=== PATIENT | female | born 1935 | race Two or more races ===

== ENCOUNTER 2019-01-12 16:32 | Emergency (ER) | payer MEDICARE, MEDICAID ==
[2019-01-12 17:33] LABS: URINE SOURCE CLEAN C
[2019-01-12 17:35] LABS: URINE BILIRUBIN NEGATIVE (NEGATIVE); URINE BLOOD NEGATIVE (NEGATIVE); URINE CLARITY CLEAR (CLEAR); URINE COLOR YELLOW; URINE GLUCOSE (UA) NEGATIVE (NEGATIVE); URINE KETONE NEGATIVE (NEGATIVE); URINE LEUKOCYTE ESTERASE NEGATIVE (NEGATIVE); URINE MICROSCOPIC INDICATED? YES; URINE NITRATE NEGATIVE (NEGATIVE); URINE PH 5.5 (4.6 - 8.0); URINE PROTEIN NEGATIVE (NEGATIVE); URINE UROBILINOGEN 0.2 E.U./dL (0.2 - 1.0)
[2019-01-12 17:40] LABS: URINE BACTERIA NONE SEEN /hpf (NONE SEEN); URINE EPITHELIAL CELLS RARE /lpf (FEW); URINE RBC NONE SEEN /hpf (0-5); URINE WBC NONE SEEN /hpf (0-5)
--- NOTE | 2019-01-12 18:23 | ED Physician Chart ---
ED Chief Complaint/HPI - Patient Information Date Seen:: 01/12/19 Time Seen:: 16:35 Chief Complaint:: Back Pain History of Present Illness:: onset x 10 days of back pain, flank pain, weakness, and dizziness; pt recently Dx with UTI; Rx with Bactrim with resolution of UTI but above s/s persist; pt denies trauma, H/As, S/T, neck pain, cough, C/P, SOB, Abd. Pain, A/N/V/D/C, fever, or chills Allergies:: Allergies Allergy/AdvReac Type Severity Reaction Status Date / Time No Known Allergies Allergy Verified 01/12/19 16:53 Vitals:: Vital Signs - 8 hr 01/12/19 16:35 HR 65 RR 18 BP 164/93 O2 Sat % 98 Historian:: Patient, Family Member Review:: Nurse's Note Reviewed, Old Chart Reviewed <Roman Corcoran - Last Filed: 01/12/19 18:27> - Patient Information Allergies:: Allergies Allergy/AdvReac Type Severity Reaction Status Date / Time No Known Allergies Allergy Verified 01/12/19 16:53 Vitals:: Vital Signs - 8 hr 01/12/19 01/12/19 01/12/19 16:35 19:20 20:05 Temp 98.0 F HR 65 60 60 RR 18 16 18 BP 164/93 137/66 136/68 O2 Sat % 98 01/12/19 21:12 Temp HR 77 RR 16 BP 136/60 O2 Sat % 98 <Esdras Vang - Last Filed: 01/13/19 10:25> ED Review of Systems - Review of Systems General/Constitutional: No fever, No chills, No weight loss, No weakness, No diaphoresis, No edema, No loss of appetite Skin: No skin lesions, No rash, No bruising Head: No headache, No light-headedness Eyes: No loss of vision, No pain, No diplopia ENT: No earache, No nasal drainage, No sore throat, No tinnitus Neck: No neck pain, No swelling, No thyromegaly, No stiffness, No mass noted Cardio Vascular: No chest pain, No palpitations, No PND, No orthopnea, No edema Pulmonary: No SOB, No cough, No sputum, No wheezing GI: No nausea, No vomiting, No diarrhea, No pain, No melena, No hematochezia, No constipation, No hematemesis G/U: Dysuria, Frequency, No hematuria, No nacturia 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: No vaginal discharge, No abnormal vaginal bleed, No contraction Musculoskeletal: No bone or joint pain, Back pain, No muscle pain Endocrine: No polyuria, No polydipsia Psychiatric: No prior psych history, No depression, No anxiety, No suicidal ideation, No homicidal ideation, No auditory hallucination, No visual hallucination Hematopoietic: No bruising, No lymphadenopathy Allergic/Immuno: No urticaria, No angioedema Neurological: No syncope, No focal symptoms, Weakness, No paresthesia, No headache, No seizure, Dizziness, No confusion, No vertigo <VirgieRoman wallis - Last Filed: 01/12/19 18:27> ED Past Medical History - Past Medical History Obtainable: Yes Past Medical History: HTN, Other (Parkinson's Disease) Family History: HTN Social History: Non Smoker, No Alcohol, No Drug Use, Surgical History: Appendectomy, Hysterectomy, Pacemaker Psychiatricy History: Schizophrenia Medication: Reviewed <Roman Corcoran - Last Filed: 01/12/19 18:27> Family Medical History - Family Member Mother History Unknown: Yes <VirgieRoman wallis - Last Filed: 01/12/19 18:27> ED Physical Exam - Physical Examination General/Constitutional: Awake, Well-developed, well-nourished, Alert, No distress, GCS 15, Non-toxic appearing, Ambulatory Head: Atraumatic Eyes: Lids, conjuctiva normal, PERRL, EOMI Skin: Nl inspection, No rash, No skin lesions, No ecchymosis, Well hydrated, No lymphadenopathy ENMT: External ears, nose nl, TM canals nl, Nasal exam nl, Lips, teeth, gums nl , Oropharynx nl, Tonsils nl Neck: Nontender, Full ROM w/o pain, No JVD, No nuchal rigidity, No bruit, No mass, No stridor Respiratory: Nl effort/Exclusion, Clear to Auscultation, No Wheeze/Rhonchi/Rales Cardio Vascular: RRR, No murmur, gallop, rubs, NL S1 S2, Carotid/Femoral/Distal pulses equal bilaterally GI: No tenderness/rebounding/guarding, No organomegaly, No hernia, Normal BS's, Nondistended, No mass/bruits, No McBurney tenderness : No CVA tenderness Extremities: No tenderness or effusion, Full ROM, normal strength in all extremities, No edema, Normal digits & nails Neuro/Psych: Alert/oriented, DTR's symmetric, Normal sensory exam, Normal motor strength, Judgement/insight normal, Mood normal, Normal gait, No focal deficits Misc: Normal back, No paraspinal tenderness <Roman Corcoran - Last Filed: 01/12/19 18:27> ED Labs/Radiology/EKG Results - Lab Results Results: Laboratory Tests 01/12/19 17:00 Urine Source CLEAN C Urine Color YELLOW Urine Clarity CLEAR Urine pH 5.5 Ur Specific Arnold <= 1.005 Urine Protein NEGATIVE Urine Glucose (UA) NEGATIVE Urine Ketones NEGATIVE Urine Blood NEGATIVE Urine Nitrate NEGATIVE Urine Bilirubin NEGATIVE Urine Urobilinogen 0.2 Ur Leukocyte Esterase NEGATIVE Urine RBC NONE SEEN Urine WBC NONE SEEN Ur Epithelial Cells RARE Urine Bacteria NONE SEEN Comments:: Reviewed <Roman Corcoran - Last Filed: 01/12/19 18:27> - Lab Results Results: Laboratory Tests 01/12/19 01/12/19 01/12/19 17:00 18:40 18:40 WBC 12.6 H RBC 4.68 Hgb 14.4 Hct 42.5 MCV 90.8 MCH 30.7 MCHC Differential 33.8 RDW 13.0 Plt Count 155 MPV 11.3 Neutrophils % 79.9 Lymphocytes % 12.2 L Monocytes % 5.4 Eosinophils % 2.5 Basophils % 0.0 PT 10.5 INR 1.01 Sodium Potassium Chloride Carbon Dioxide Anion Gap BUN Creatinine Est GFR ( Amer) Est GFR (Non-Af Amer) BUN/Creatinine Ratio Glucose Calcium Total Bilirubin AST ALT Alkaline Phosphatase Creatine Kinase Troponin I B-Natriuretic Peptide Total Protein Albumin Globulin Albumin/Globulin Ratio Triglycerides Cholesterol LDL Cholesterol Direct HDL Cholesterol Urine Source CLEAN C Urine Color YELLOW Urine Clarity CLEAR Urine pH 5.5 Ur Specific Arnold <= 1.005 Urine Protein NEGATIVE Urine Glucose (UA) NEGATIVE Urine Ketones NEGATIVE Urine Blood NEGATIVE Urine Nitrate NEGATIVE Urine Bilirubin NEGATIVE Urine Urobilinogen 0.2 Ur Leukocyte Esterase NEGATIVE Urine RBC NONE SEEN Urine WBC NONE SEEN Ur Epithelial Cells RARE Urine Bacteria NONE SEEN 0701/12/19 01/12/19 18:40 18:40 18:40 WBC RBC Hgb Hct MCV MCH MCHC Differential RDW Plt Count MPV Neutrophils % Lymphocytes % Monocytes % Eosinophils % Basophils % PT INR Sodium 136 Potassium 4.0 Chloride 98 Carbon Dioxide 28.2 Anion Gap 13.8 BUN 26 H Creatinine 1.3 H Est GFR ( Amer) TNP Est GFR (Non-Af Amer) TNP BUN/Creatinine Ratio 20.0 Glucose 106 H Calcium 9.4 Total Bilirubin 0.8 AST 22 ALT 3 L Alkaline Phosphatase 81 Creatine Kinase 93 Troponin I 0.01 B-Natriuretic Peptide 68.6 Total Protein 6.7 Albumin 4.2 Globulin 2.5 Albumin/Globulin Ratio 1.7 Triglycerides 208 H Cholesterol 178 LDL Cholesterol Direct 103 HDL Cholesterol 52 Urine Source Urine Color Urine Clarity Urine pH Ur Specific Arnold Urine Protein Urine Glucose (UA) Urine Ketones Urine Blood Urine Nitrate Urine Bilirubin Urine Urobilinogen Ur Leukocyte Esterase Urine RBC Urine WBC Ur Epithelial Cells Urine Bacteria <Esdras Vang - Last Filed: 01/13/19 10:25> ED Septic Shock - . Is Septic Shock (SBP<90, OR Lactate>4 mmol\L) present?: No - <6hrs of presentation: Vital Signs: Vital Signs - 8 hr 01/12/19 16:35 HR 65 RR 18 BP 164/93 O2 Sat % 98 <Roman Corcoran - Last Filed: 01/12/19 18:27> - . Is Septic Shock (SBP<90, OR Lactate>4 mmol\L) present?: No - <6hrs of presentation: Vital Signs: Vital Signs - 8 hr 01/12/19 01/12/19 01/12/19 16:35 19:20 20:05 Temp 98.0 F HR 65 60 60 RR 18 16 18 BP 164/93 137/66 136/68 O2 Sat % 98 01/12/19 21:12 Temp HR 77 RR 16 BP 136/60 O2 Sat % 98 <Esdras Vang - Last Filed: 01/13/19 10:25> ED Reassessment (Disposition) - Reassessment Reassessment Condition:: Improved - Diagnosis Diagnosis:: Back Pain; Flank Pain; Weakness; Dizziness; Vertigo; Hypertension <Roman Corcoran - Last Filed: 01/12/19 18:27> - Reassessment Reassessment:: Pt has leukocytosis and dehydration. CT abd/pelv showed diverticulosis without acute disease. Per family, pt was recently treated with 2 different oral antibiotics, one for 10 days and levaquin PO for 4 days. Pt still had bilateral flank pain, worse on the left side. NS 1L IV bolus, levaquin 500 mg IV and Tylenol 650 mg PO were administered. Pt can be discharged home and continue oral antibiotics. Follow up PCP. Reassessment Condition:: Improved - Patient Disposition Discharge/Transfer:: Home <Esdras Vang - Last Filed: 01/13/19 10:25>
[2019-01-12 18:57] LABS: % EOSINOPHILS 2.5 % (0.0-5.0); % LYMPHOCYTES 12.2 % (20.0-50.0); % MONOCYTES 5.4 % (2.0-10.0); % NEUTROPHILS 79.9 % (40.0-80.0); EOSINOPHILE ABSOLUTE 0.3 Th/cmm (0.1-0.4); HEMATOCRIT 42.5 % (41.0-60); HEMOGLOBIN 14.4 gm/dL (12-16); LYMPHOCYTE ABSOLUTE 1.5 Th/cmm (1.5-3.0); MEAN CELL VOLUME 90.8 fl (81-100); MEAN CORPUSCULAR HEMOGLOBIN 30.7 pg (27.0-31.0); MEAN CORPUSCULAR HGB CONC 33.8 pg (28.0-36.0); MONOCYTE ABSOLUTE 0.7 Th/cmm (0.3-1.0); NEUTROPHILE ABSOLUTE 10.1 Th/cmm (1.8-8.0); PLATELET COUNT 155 Th/cmm (150-400); RED BLOOD COUNT 4.68 Mil/cmm (3.80-5.20); WHITE BLOOD COUNT 12.6 Th/cmm (4.8-10.8)
[2019-01-12 19:06] LABS: INR 1.01 (0.5-1.4)
[2019-01-12 19:10] LABS: ALB/GLOB RATIO 1.7 (1.0-1.8); ALBUMIN 4.2 gm/dL (3.7-5.3); ALKALINE PHOSPHATASE 81 U/L (34-104); ANION GAP 13.8 (7.0-16.0); BILIRUBIN,TOTAL 0.8 mg/dL (0.3-1.0); BUN - UREA NITROGEN 26 mg/dL (7-25); CALCIUM SERUM 9.4 mg/dL (8.6-10.3); CARBON DIOXIDE 28.2 mEq/L (21.0-31.0); CHLORIDE 98 mEq/L (98-107); CHOLESTEROL 178 mg/dL (<200); CREATININE - SERUM 1.3 mg/dL (0.6-1.2); CREATININE KINASE 93 U/L (30-223); GLUCOSE 106 mg/dL (70-105); HDL -HIGH DENSITY LIPOPROTEIN 52 mg/dL (23-92); SGOT 22 U/L (13-39); SGPT/ALT 3 U/L (7-52); SODIUM SERUM 136 mEq/L (136-145); TOTAL PROTEIN,SERUM 6.7 gm/dL (6.0-8.3); TRIGLYCERIDES 208 mg/dL (<150)
[2019-01-12] MEDS ORDERED: Sodium Chloride 0.9% 1,000 ML IV ONE (19:37)
[2019-01-12] MEDS ORDERED: Levofloxacin 500mg/100mL 500 MG/100 ML BAG IV ONE (20:14)
[2019-01-12] MEDS ORDERED: Levofloxacin 500mg/100mL 500 MG/100 ML BAG IV SCH (20:15)
--- NOTE | 2019-01-13 10:34 | Diagnostic Imaging Report ---
CT scan of the abdomen and pelvis without intravenous contrast History: Pain Total DLP equals 1421 CTDI equals 35.0 Axial sections were obtained from the xiphoid process down to the pubic symphysis. The liver demonstrates a normal size and contour. No focal lesions are seen. The spleen appears normal. No abnormalities are seen in the region of the pancreas. The kidneys appear normal bilaterally. No bowel dilatation. Colonic diverticula are seen. Atherosclerotic calcification noted. Degenerative changes seen to the spine. The exam of the pelvis demonstrates preservation of normal fat planes. No abnormal soft tissue masses. No abnormal fluid collections. Impression: 1. No acute abnormalities 2. Diverticulosis 3. Atherosclerotic vascular changes
== END 2019-01-12 22:05 | disposition home or self-care (01) ==
LOC: ER 16:32
DX: M54.9 Dorsalgia, unspecified (principal); I10 Essential (primary) hypertension; R42 Dizziness and giddiness; R53.1 Weakness; R10.9 Unspecified abdominal pain; F20.9 Schizophrenia, unspecified; Z95.1 Presence of aortocoronary bypass graft; Z90.49 Acquired absence of other specified parts of digestive tract; Z90.710 Acquired absence of both cervix and uterus
CPT/HCPCS: 99284; 96365; 96366; 94760; 93005; 74176; 84484; 83880; 36415; 85025; 85610; 81001; 82550; 80053; 80061; J1956; J7030; Z7610